=== PATIENT | female | born 1975 | race Caucasian/White ===

== ENCOUNTER 2018-04-30 15:03 | Emergency (ER) | payer OTHER ==
[~2018-04-30] VITALS: Ht 157.5 cm; Wt 59.0 kg
[2018-04-30] MEDS ORDERED: PROTONIX40 MG (15:12)
[2018-04-30] MEDS ORDERED: ZANTAC150 M3 (15:13)
[2018-04-30] MEDS ORDERED: DICY20TA (15:13)
== END 2018-04-30 21:50 | disposition home or self-care (01) ==
LOC: ER 15:03
DX: K29.70 Gastritis, unspecified, without bleeding (principal)